=== PATIENT | male | born 1985 | race Caucasian/White ===

== ENCOUNTER 2021-03-23 20:14 | Observation (INO) ==
[2021-03-23] MEDS ORDERED: IOPAMIDOL 100 ML BOTTLE IV ONE (20:15)
[2021-03-23] MEDS ORDERED: ONDANSETRON 4 MG/2 ML VIAL IV ONE (20:19)
[2021-03-23] MEDS ORDERED: 0.9 % SODIUM CHLORIDE 1,000 ML IV ONE (20:19)
[2021-03-23] MEDS ORDERED: fentaNYL 100 MCG/2 ML VIAL IV ONE (20:19)
--- NOTE | 2021-03-23 20:38 | Emergency Department Note ---
Abdominal Pain HPI General Chief Complaint: Abdominal Pain Stated Complaint: abd pain Time Seen by Provider: 03/23/21 20:19 Source: patient Mode of arrival: ambulatory Limitations: no limitations History of Present Illness HPI Narrative: Narrative: 35-year-old male presents to the emergency department for right lower quadrant abdominal pain. Says it started to go down into his scrotum. He says started around 130 and is continued to get worse. He has some nausea but no vomiting says it is now about 8 out of 10 sharp stabbing pain worse with any movement. Is never had any abdominal surgeries. No change in bowel movements. No pain with urination. Denying any other symptoms otherwise. Related Data Home Medications Medication Instructions Recorded Confirmed No Known Home Meds 09/08/20 09/08/20 Allergies Allergy/AdvReac Type Severity Reaction Status Date / Time No Known Drug Allergies Allergy Verified 03/23/21 20:15 Review of Systems ROS ROS Narrative: Narrative: All systems ED: reviewed and negative except as stated. COUNTS INCLUDE 234 BEDS AT THE [facility] Narrative Patient History Narrative: Narrative: Medical/Surgical/Family History All Active Problems (Updated 03/23/21 @ 21:20 by Ramu Roque DO) Acute appendicitis (Acute) Cough (Acute) Social History Smoking Status: Former smoker Exam Narrative Narrative: Narrative: Vital signs noted General: Awake. Alert. No distress. Skin: Warm. Dry. No rash. HEENT: NCAT. PERRL. EOMI. No conjunctivitis. No nystagmus. No pharyngitis. Membranes moist. Neck: No PTP. Good ROM. No meningeal signs. No stridor. No thyromegaly. No JVD. Cardiovascular: RRR. No murmur. No rubs. No gallops. Respiratory: No respiratory distress. Breath sounds equal. Lungs clear. Gastrointestinal: Abdomen soft. Tenderness while palpating the right lower quadrant. Negative CVA tenderness. Positive Rovsing sign as well as McBurney's point. Negative Berger sign. No distention. Normal bowel sounds. No palpable organomegaly or masses. Back: No deformity. No CVAT. Musculoskeletal: No tenderness. No swelling. No erythema. No edema. Good peripheral pulses x 4 Lymphatic: No palpable adenopathy. Neurological: No focal neurological deficits observed. General Limitations: no limitations Course Vital Signs Vital signs: Vital Signs Temperature 99.2 F H 03/23/21 20:16 Pulse Rate 78 03/23/21 20:16 Respiratory Rate 18 03/23/21 20:16 Blood Pressure 136/76 03/23/21 20:16 Pulse Oximetry (%) 98 03/23/21 20:16 Temperature 99.2 F H 03/23/21 20:16 Pulse Rate 84 03/23/21 21:06 Respiratory Rate 18 03/23/21 20:16 Blood Pressure 145/74 03/23/21 21:06 Pulse Oximetry (%) 100 03/23/21 21:06 MDM MDM Narrative Medical decision making narrative: Narrative: Patient does have right lower quadrant pain on exam. Most likely this is appendicitis possible kidney stone will get CT for verification. We will get basic labs. Patient will receive fentanyl for pain control Zofran for nausea and IV fluids for rehydration. Patient is okay with this plan. Disposition will be pending results. She is better after the medication. Patient does have acute appendicitis no perforation no abscess. Does have a white count of 15. We will go ahead and admit the patient to Dr. Walden the surgeon who I did speak with and will plan for surgery tomorrow. Patient is admitted in stable condition. We will start Zosyn in the emergency department and continued on the floor. Lab Data Result diagrams: 03/23/21 20:25 03/23/21 20:25 Labs: Lab Results 03/23/21 Range/Units 20:25 WBC 15.4 H (4.5-11.0) K/mcL RBC 4.97 (4.50-5.90) M/mcL Hgb 15.1 (13.5-16.5) g/dL Hct 42.4 (41.0-55.0) % MCV 85.3 (80.0-100.0) fL MCH 30.4 (26.0-34.0) pg MCHC 35.6 (31.0-36.0) g/dL RDW 11.9 (11.5-14.5) % Plt Count 270 (140-440) K/mcL MPV 10.1 (7.4-10.4) fL Neut % (Auto) 84.4 H (38.0-78.0) % Lymph % (Auto) 8.0 L (15.0-49.0) % [place] % (Auto) 7.3 (1.0-12.0) % Eos % (Auto) 0.1 (0.0-7.0) % Baso % (Auto) 0.2 (0.0-2.0) % Lymph # (Auto) 1.23 L (1.50-4.80) K/mcL [place] # (Auto) 1.13 H (0.10-0.90) K/mcL Eos # (Auto) 0.02 (0.00-0.70) K/mcL Baso # (Auto) 0.03 (0.00-0.20) K/mcL Absolute Neutrophils 12.98 H (1.80-8.00) K/mcL Discharge Plan Patient/Caregiver Discharge Instructions Pt seen by FEED INSPECTION SUPERVISOR/PA only: No Clinical Impression: Acute appendicitis Activity: increase activity as tolerated Patient Disposition: Xfer As Outpt/Obs ([facility]) Condition: Good Follow up with: No,PCP [Primary Care Provider] - Prescriptions: No Action No Known Home Meds RF: 0
[2021-03-23 21:12] LABS: Basophils # (Auto) 0.03 K/mcL (0.00-0.20); Basophils % (Auto) 0.2 % (0.0-2.0); Eosinophils # (Auto) 0.02 K/mcL (0.00-0.70); Eosinophils % (Auto) 0.1 % (0.0-7.0); Hematocrit 42.4 % (41.0-55.0); Hemoglobin 15.1 g/dL (13.5-16.5); Lymphocytes # (Auto) 1.23 K/mcL (1.50-4.80); Mean Cell Volume 85.3 fL (80.0-100.0); Mean Corpuscular HGB Conc 35.6 g/dL (31.0-36.0); Mean Platelet Volume 10.1 fL (7.4-10.4); Monocytes # (Auto) 1.13 K/mcL (0.10-0.90); Monocytes % (Auto) 7.3 % (1.0-12.0); Neutrophils % (Auto) 84.4 % (38.0-78.0); Platelet Count 270 K/mcL (140-440); RBC 4.97 M/mcL (4.50-5.90); Red Cell Distribution Width 11.9 % (11.5-14.5); WBC 15.4 K/mcL (4.5-11.0)
[2021-03-23 21:20] LABS: Appearance,Urine CLEAR (Clear); Bilirubin,Urine Negative (Negative); Color,Urine YELLOW; Culture Indicated,Urine No; Glucose,Urine (UA) Negative (Negative); Ketones,Urine 20 mg/dL (Negative); Leukocyte Esterase,Urine Negative /ug (Negative); Nitrate,Urine Negative (Negative); Protein,Urine Negative (Negative); Specific Gravity,Urine 1.024 (1.000-1.035); Urine Blood Negative (Negative)
[2021-03-23] MEDS ORDERED: NALOXONE HCL 0.4 MG/ML VIAL IV PRN (21:20)
[2021-03-23] MEDS ORDERED: morphine 4 MG/ML VIAL IV PRN (21:20)
[2021-03-23] MEDS ORDERED: PIPERACILLIN SODIUM/TAZOBACTAM 3.375 GM in DEXTROSE 5% IN WATER 50 ML IV ONE (21:20)
[2021-03-23] MEDS ORDERED: ACETAMINOPHEN 325 MG TABLET PO PRN (21:20)
[2021-03-23] MEDS ORDERED: IBUPROFEN 600 MG TABLET PO PRN (21:20)
[2021-03-23] MEDS ORDERED: ONDANSETRON 4 MG/2 ML VIAL IV PRN (21:20)
[2021-03-23 21:36] LABS: ALT/SGPT 20 U/L (<40); AST/SGOT 23 U/L (<40); Albumin 4.6 gm/dL (3.2-5.2); Albumin/Globulin Ratio 1.6 (1.0-2.3); Alkaline Phosphatase 88 U/L (39-117); Bilirubin,Total 0.5 mg/dL (0.1-1.0); Blood Urea Nitrogen 14 mg/dL (6-20); Calcium 9.5 mg/dL (8.6-10.4); Carbon Dioxide 24 mmol/L (22-30); Chloride 100 mmol/L (96-108); Globulin 2.8 gm/dL (2.2-3.7); Glomerular Filtration Rate 96; Glucose 96 mg/dL (70-105)
[2021-03-23] MEDS: 0.9 % SODIUM CHLORIDE 1,000 ML IV SCH (22:01)
[2021-03-23] MEDS: PIPERACILLIN SODIUM/TAZOBACTAM 3.375 GM in DEXTROSE 5% IN WATER 50 ML IV SCH (22:02)
[2021-03-23] MEDS: 0.9 % SODIUM CHLORIDE 10 ML SYRINGE IV SCH (22:02)
[2021-03-23] MEDS ORDERED: HYDROmorphone 0.5 MG/0.5 ML SYRINGE IV PRN (22:31)
[2021-03-23 22:41] LABS: INR 1.1 (0.9-1.1); Prothrombin Time 14.3 sec (11.9-14.5)
--- NOTE | 2021-03-24 02:26 | Cat Scan Report ---
CLINICAL INFORMATION: Right lower quadrant pain COMPARISON: None. TECHNIQUE: Following enteric contrast, 80 cc of Isovue-370 were injected intravenously, and 60 seconds later, 0.625 mm helical slices were obtained from the mid heart through the subtrochanteric regions. Following reconstruction, 2.5 mm sagittal, coronal and axial reformatted images were processed and reviewed at bone, lung and soft tissue windows. Five minutes later, 0.625 mm helical slices were obtained from the mid heart through the kidneys and viewed at soft tissue windows.The exam was performed using radiation dose optimization techniques including, but not limited to, automated exposure control, adjustment of the mA and/or kV according to patient size and use of iterative reconstruction technique. FINDINGS: Lung bases are clear. No effusion. Visualized heart is normal. Abdominal images show the gallbladder and bile ducts, liver, right kidney, both adrenal glands, spleen, pancreas and aorta, including aortic branches to be normal in size configuration and attenuation without focal lesion. 5 mm simple cyst seen inferior pole the left kidney. No significant left renal abnormality. There is no free air, free fluid or adenopathy Pelvic images show prostate and seminal vesicles are normal. Mild diffuse urinary bladder wall thickening likely artifact related to underdistention. An infiltrative process, such as cystitis, is not excluded The appendix, located in the inferior pericecal region, is mildly dilated-9 mm there is mild wall thickening and inflammation in the periappendiceal fat compatible with simple appendicitis. The stomach, small and large bowel are grossly normal. Bone windows show no osseous abnormality IMPRESSION: 1. Simple appendicitis. Appendix is located in inferior pericecal region. 2. Mild diffuse wall thickening the urinary bladder is likely artifact related underdistention. Please correlate with UA to ensure the absence of cystitis. Interpreted and Authenticated by: Luis Alberto Manzanares 03/24/21
[2021-03-24] MEDS: 0.9 % SODIUM CHLORIDE 10 ML SYRINGE IV SCH ×5 (05:15→21:30)
[2021-03-24 06:42] LABS: Basophils # (Auto) 0.01 K/mcL (0.00-0.20); Basophils % (Auto) 0.1 % (0.0-2.0); Eosinophils # (Auto) 0.01 K/mcL (0.00-0.70); Eosinophils % (Auto) 0.1 % (0.0-7.0); Hematocrit 36.9 % (41.0-55.0); Hemoglobin 12.8 g/dL (13.5-16.5); Lymphocytes % (Auto) 12.8 % (15.0-49.0); Mean Cell Volume 87.9 fL (80.0-100.0); Mean Corpuscular HGB Conc 34.7 g/dL (31.0-36.0); Mean Platelet Volume 10.2 fL (7.4-10.4); Monocytes # (Auto) 0.93 K/mcL (0.10-0.90); Monocytes % (Auto) 8.5 % (1.0-12.0); Neutrophils % (Auto) 78.5 % (38.0-78.0); Platelet Count 192 K/mcL (140-440); Red Cell Distribution Width 12.1 % (11.5-14.5); WBC 10.9 K/mcL (4.5-11.0)
[2021-03-24] MEDS: PIPERACILLIN SODIUM/TAZOBACTAM 3.375 GM in DEXTROSE 5% IN WATER 50 ML IV SCH ×3 (07:00→17:12)
[2021-03-24 07:05] LABS: ALT/SGPT 16 U/L (<40); AST/SGOT 14 U/L (<40); Albumin 3.6 gm/dL (3.2-5.2); Albumin/Globulin Ratio 1.6 (1.0-2.3); Alkaline Phosphatase 70 U/L (39-117); Bilirubin,Direct 0.2 mg/dL (<0.3); Bilirubin,Total 0.9 mg/dL (0.1-1.0); Blood Urea Nitrogen 13 mg/dL (6-20); Calcium 8.4 mg/dL (8.6-10.4); Carbon Dioxide 27 mmol/L (22-30); Chloride 102 mmol/L (96-108); Globulin 2.3 gm/dL (2.2-3.7); Glomerular Filtration Rate 109; Glucose 346 mg/dL (70-105); Lactate Dehydrogenase 145 U/L (135-225); Triglycerides 42 mg/dL (<150); Uric Acid 3.7 mg/dL (2.5-8.0)
[2021-03-24] MEDS: 0.9 % SODIUM CHLORIDE 1,000 ML IV SCH ×3 (07:28→16:54)
[2021-03-24] MEDS: INSULIN LISPRO 1 UNIT/0.01 ML UNIT SQ SCH ×4 (07:59→20:38)
[2021-03-24] MEDS: DOCUSATE SODIUM 100 MG CAPSULE PO SCH ×2 (08:03→20:39)
[2021-03-24] MEDS ORDERED: HEPARIN 5,000 UNIT/ML VIAL SQ SCH (09:00)
--- NOTE | 2021-03-24 10:34 | General Surg History&Physical ---
HPI History of Present Illness Patient information: Note initiated : 03/24/21 at 10:18 am Service Date, if different from initiated Date: [] Patient: Ced Coppola a 35 y/o M admitted on 03/23/21 for abd pain. Chief Complaint: [] Chief complaint: Right lower quadrant pain History of present illness: Mr. Coppola is a 35 year old M admitted with acute appendicitis. The patient had onset of mid abdominal diffuse pain about 1330 y esterday. The pain spread to his right lower quadrant and into his right groin. This was followed by nausea with vomiting. He had increased pain and was seen in the emergency room where it was noted that he had tenderness in his right lower quadrant. CT of the abdomen confirms a dilated appendix of 11 mm with swelling on the wall and an appendicolith. He is admitted and will have appendectomy today. Constitutional Constitutional: Absent chills, lethargy and malaise EENT Eyes: Present as per HPI Ears: Present as per HPI Nose, mouth and throat: Present as per HPI Cardiovascular Cardiovascular: Absent chest pain, chest pain with activity and irregular heart rhythm Respiratory Respiratory: Absent cough and dyspnea Gastrointestinal Gastrointestinal: Present abdominal pain, cramping, nausea and vomiting Genitourinary Genitourinary: as per HPI Musculoskeletal Musculoskeletal: Absent abnormal gait, myalgias and numbness Integumentary Integumentary: Absent changing lesions and pruritus Neurological Neurological: Absent convulsions, focal weakness, numbness, paresthesias and sensory deficit Psychiatric Psychiatric: Absent memory loss Endocrine Endocrine: Absent fatigue, polydipsia, polyphagia and polyuria Hematologic/Lymphatic Hematologic/Lymphatic: Absent easy bleeding, easy bruising and lymphadenopathy Allergic/Immunologic Allergic/Immunologic: Absent tongue swelling and throat swelling PFSH PFSH All Active Problems (Updated 03/24/21 @ 10:27 by Daxa Walden MD) Type 1 diabetes mellitus not at goal (Acute) Acute appendicitis (Acute) Cough (Acute) Family History (Updated 03/24/21 @ 10:29 by Daxa Walden MD) Mother Chronic iron deficiency anemia Father Gastrointestinal malignancy Hypertension Social History (Updated 03/24/21 @ 10:31 by Daxa Walden MD) household members: spouse marital status: sexually active: Yes well-balanced diet: about half the time smoking status: Never smoker alcohol intake frequency: a few times a week counseling given: Yes substance use type: does not use MEDS/ALLERGIES Home Medications and Allergies Home Medications Medication Instructions Recorded Confirmed Type insulin NPH isoph U-100 human 20 unit SUBCUT QPM 03/23/21 03/23/21 History insulin NPH isoph U-100 human 35 unit SUBCUT QAM 03/23/21 03/23/21 History insulin regular human 10 unit SUBCUT BID 03/23/21 03/23/21 History Allergies Allergy/AdvReac Type Severity Reaction Status Date / Time No Known Drug Allergies Allergy Verified 03/23/21 20:15 Physical Examination Vital Signs Vital signs: Temp Pulse Resp BP Pulse Ox 97.9 F 73 14 111/55 97 03/24/21 08:00 03/24/21 08:00 03/24/21 08:00 03/24/21 08:00 03/24/21 08:00 General physical appearance General physical exam: well developed, well nourished, no distress and moderate pain Eyes Eye exam: PERRL and normal ocular movement ENT ENT exam: normal pinna, normal nares, normal mucosa, no hearing loss and no congestion Head Head exam IM: Present atraumatic, normal inspection and normocephalic Neck Neck exam: no masses, no bruits, trachea midline and no lymphadenopathy Cardiovascular Cardiovascular exam IM: Present normal rate and rhythm, RRR, +S1 and +S2; Absent gallop and JVD Respiratory Respiratory exam: normal expansion, normal respiratory effort and clear to auscultation Abdomen Abdomen: Present tender (Right lower quadrant tenderness with guarding) Integumentary Integumentary: Present no rash, no growths and no abnormal pigmentation Neurologic Neurologic: Present normal coordination and normal sensation Musculoskeletal Musculoskeletal: Present normal gait and normal posture Psychiatric Psychiatric: Present oriented to time, oriented to person, oriented to place, speech is normal and memory intact Results Labs Result diagrams: 03/24/21 05:31 03/24/21 05:31 Labs: Abnormal lab results 03/23/21 03/23/21 03/24/21 Range/Units 20:23 20:25 05:31 WBC 15.4 H (4.5-11.0) K/mcL RBC (4.50-5.90) M/mcL Hgb (13.5-16.5) g/dL Hct (41.0-55.0) % Neut % (Auto) 84.4 H (38.0-78.0) % Lymph % (Auto) 8.0 L (15.0-49.0) % Lymph # (Auto) 1.23 L (1.50-4.80) K/mcL [place] # (Auto) 1.13 H (0.10-0.90) K/mcL Absolute Neutrophils 12.98 H (1.80-8.00) K/mcL Anion Gap 7.0 L (8.0-16.0) Glucose 346 H (70-105) mg/dL Calcium 8.4 L (8.6-10.4) mg/dL Urine Ketones 20 A (Negative) mg/dL Urine Urobilinogen 2.0 A mg/dL 03/24/21 Range/Units 05:31 WBC (4.5-11.0) K/mcL RBC 4.20 L (4.50-5.90) M/mcL Hgb 12.8 L (13.5-16.5) g/dL Hct 36.9 L (41.0-55.0) % Neut % (Auto) 78.5 H (38.0-78.0) % Lymph % (Auto) 12.8 L (15.0-49.0) % Lymph # (Auto) 1.40 L (1.50-4.80) K/mcL [place] # (Auto) 0.93 H (0.10-0.90) K/mcL Absolute Neutrophils 8.59 H (1.80-8.00) K/mcL Anion Gap (8.0-16.0) Glucose (70-105) mg/dL Calcium (8.6-10.4) mg/dL Urine Ketones (Negative) mg/dL Urine Urobilinogen mg/dL Diabetes panel 03/23/21 03/24/21 Range/Units 20:25 05:31 Sodium 135 136 (133-145) mmol/L Potassium 3.5 4.4 (3.3-5.1) mmol/L Chloride 100 102 (96-108) mmol/L Carbon Dioxide 24 27 (22-30) mmol/L BUN 14 13 (6-20) mg/dL Creatinine 1.0 0.9 (0.7-1.2) mg/dL Glucose 96 346 H (70-105) mg/dL Calcium 9.5 8.4 L (8.6-10.4) mg/dL AST 23 14 (<40) U/L ALT 20 16 (<40) U/L Alkaline Phosphatase 88 70 (39-117) U/L Total Protein 7.4 5.9 (5.9-8.4) gm/dL Albumin 4.6 3.6 (3.2-5.2) gm/dL Triglycerides 42 (<150) mg/dL Calcium panel 03/23/21 03/24/21 Range/Units 20:25 05:31 Calcium 9.5 8.4 L (8.6-10.4) mg/dL Phosphorus 4.0 (2.5-4.5) mg/dL Albumin 4.6 3.6 (3.2-5.2) gm/dL Pituitary panel 03/23/21 03/24/21 Range/Units 20:25 05:31 Sodium 135 136 (133-145) mmol/L Potassium 3.5 4.4 (3.3-5.1) mmol/L Chloride 100 102 (96-108) mmol/L Carbon Dioxide 24 27 (22-30) mmol/L BUN 14 13 (6-20) mg/dL Creatinine 1.0 0.9 (0.7-1.2) mg/dL Glucose 96 346 H (70-105) mg/dL Calcium 9.5 8.4 L (8.6-10.4) mg/dL Adrenal panel 03/23/21 03/24/21 Range/Units 20:25 05:31 Sodium 135 136 (133-145) mmol/L Potassium 3.5 4.4 (3.3-5.1) mmol/L Chloride 100 102 (96-108) mmol/L Carbon Dioxide 24 27 (22-30) mmol/L BUN 14 13 (6-20) mg/dL Creatinine 1.0 0.9 (0.7-1.2) mg/dL Glucose 96 346 H (70-105) mg/dL Calcium 9.5 8.4 L (8.6-10.4) mg/dL Total Bilirubin 0.5 0.9 (0.1-1.0) mg/dL AST 23 14 (<40) U/L ALT 20 16 (<40) U/L Alkaline Phosphatase 88 70 (39-117) U/L Total Protein 7.4 5.9 (5.9-8.4) gm/dL Albumin 4.6 3.6 (3.2-5.2) gm/dL All other labs normal. A/P Assessment and plan (1) Acute appendicitis: Status: Acute Qualifiers: Acute appendicitis type: with localized peritonitis Appendicitis abscess presence: without abscess Appendicitis gangrene presence: without gangrene Appendicitis perforation presence: without perforation Qualified Code(s): K35.30 - Acute appendicitis with localized peritonitis, without perforation or gangrene (2) Type 1 diabetes mellitus not at goal: Status: Acute Narrative A/P Narrative: Patient is counseled for laparoscopic appendectomy He will be performed later today He is given counseling concerning control of his diabetes Time Spent With Patient Time: Total time spent is greater than 50% in coordination of care (as documented) at patient's floor/unit and/or counseling patient:
[2021-03-24] MEDS ORDERED: ROCURONIUM 10 MG/ML ML IV ONE (11:34)
[2021-03-24] MEDS ORDERED: KETAMINE 50 MG/ML ML ONE (11:34)
[2021-03-24] MEDS ORDERED: MIDAZOLAM 2 MG/2 ML VIAL ONE (11:34)
[2021-03-24] MEDS ORDERED: LIDOCAINE HCL/PF 100 MG/5 ML SYRINGE IV ONE (11:34)
[2021-03-24] MEDS ORDERED: ONDANSETRON 4 MG/2 ML VIAL ONE (11:34)
[2021-03-24] MEDS ORDERED: fentaNYL 100 MCG/2 ML VIAL IV ONE (11:34)
[2021-03-24] MEDS ORDERED: DEXAMETHASONE 10 MG/ML VIAL ONE (11:34)
[2021-03-24] MEDS ORDERED: PROPOFOL 200 MG/20 ML VIAL IV ONE (11:34)
[2021-03-24] MEDS ORDERED: GLYCOPYRROLATE 0.2 MG/ML VIAL IV ONE (11:34)
[2021-03-24] MEDS ORDERED: ONDANSETRON 4 MG/2 ML VIAL IV PRN (12:17)
[2021-03-24] MEDS ORDERED: PROMETHAZINE 25 MG/ML VIAL IM PRN (12:17)
[2021-03-24] MEDS ORDERED: fentaNYL 100 MCG/2 ML VIAL IV PRN (12:17)
[2021-03-24] MEDS ORDERED: BENZOCAINE/MENTHOL 1 LOZENGE PO PRN (12:17)
[2021-03-24] MEDS ORDERED: IPRATROPIUM/ALBUTEROL 3 ML AMPUL.NEB NEB PRN (12:17)
[2021-03-24] MEDS ORDERED: KETOROLAC 30 MG/ML VIAL IV PRN (12:17)
[2021-03-24] MEDS ORDERED: PROMETHAZINE 25 MG/ML VIAL IV PRN (12:17)
[2021-03-24] MEDS ORDERED: MEPERIDINE 50 MG/ML VIAL IM PRN (12:17)
[2021-03-24] MEDS ORDERED: ACETAMINOPHEN 1,000 MG/100 ML BAG IV ONE (12:17)
--- NOTE | 2021-03-24 12:30 | Brief Operative Note ---
Brief Operative Note Date of procedure: 03/24/21 Pre-op diagnosis: acute appendicitis Post-op diagnosis: other (acute appendicitis) Procedure: laparoscopic appendectomy Grafts/Implants: No Anesthesia: GETA Findings: acute suppurative appendicitis Complications: none Surgeon: Daxa Walden Estimated blood loss (cc): 5 Specimens Removed/Pathology: other (appendix) Condition: stable Disposition: PACU
[2021-03-24] MEDS: LACTATED RINGERS 1,000 ML IV SCH ×2 (12:38→13:45)
[2021-03-24] MEDS ORDERED: MEPERIDINE 25 MG/ML VIAL IV ONE (13:00)
[2021-03-24] MEDS ORDERED: LACTATED RINGERS 1,000 ML IV SCH (13:42)
[2021-03-24] MEDS ORDERED: SENNOSIDES 1 TABLET PO SCH (21:00)
[2021-03-25] MEDS: PIPERACILLIN SODIUM/TAZOBACTAM 3.375 GM in DEXTROSE 5% IN WATER 50 ML IV SCH ×3 (00:20→11:54)
[2021-03-25] MEDS: 0.9 % SODIUM CHLORIDE 1,000 ML IV SCH ×3 (01:45→13:17)
[2021-03-25] MEDS: 0.9 % SODIUM CHLORIDE 10 ML SYRINGE IV SCH ×2 (05:21→05:22)
[2021-03-25] MEDS: INSULIN LISPRO 1 UNIT/0.01 ML UNIT SQ SCH ×2 (07:07→11:54)
[2021-03-25] MEDS: DOCUSATE SODIUM 100 MG CAPSULE PO SCH (08:59)
[2021-03-25 09:14] LABS: Basophils # (Auto) 0.01 K/mcL (0.00-0.20); Basophils % (Auto) 0.1 % (0.0-2.0); Eosinophils # (Auto) 0 K/mcL (0.00-0.70); Eosinophils % (Auto) 0 % (0.0-7.0); Hematocrit 36.2 % (41.0-55.0); Hemoglobin 12.3 g/dL (13.5-16.5); Lymphocytes # (Auto) 0.93 K/mcL (1.50-4.80); Lymphocytes % (Auto) 7.7 % (15.0-49.0); Mean Cell Volume 90.7 fL (80.0-100.0); Mean Platelet Volume 10.9 fL (7.4-10.4); Monocytes # (Auto) 0.59 K/mcL (0.10-0.90); Monocytes % (Auto) 4.9 % (1.0-12.0); Neutrophils % (Auto) 87.3 % (38.0-78.0); Platelet Count 201 K/mcL (140-440); RBC 3.99 M/mcL (4.50-5.90); Red Cell Distribution Width 12.1 % (11.5-14.5)
--- NOTE | 2021-03-25 12:51 | Discharge Summary ---
Discharge Provider Provider Patient information: Note initiated : 03/25/21 at 12:43 pm Service Date, if different from initiated Date: [] Patient: Ced Coppola 35 y/o M admitted on 03/23/21 for abd pain. Chief Complaint: [] Date of admission: 03/23/21 21:50 Discharge date: 03/25/21 Primary care physician: PCP No Admitting clinician: Daxa Walden Attending physician on admission: Daxa Walden Consults: 03/23/21 Consult to Physician [CONS] Stat Comment: Consulting Provider: Daxa Walden Reason For Exam: Physician to Consult Attending physician on discharge: Daxa Walden Discharging clinician: Daxa Walden COURSE Hospital Course Hospital course: 35-year-old male who presented with a 12-hour history of right lower quadrant pain with nausea and vomiting. Evaluation revealed acute appendicitis. He had laparoscopic appendectomy on yesterday and has done well with regard to his appendicitis. The patient also has type 1 diabetes and has not had any follow-up for his diabetes in over a year. He rarely checks his blood glucose level by Accu-Cheks. He states that he follows his diabetes based on his feeling and he takes extra insulin when he feels bad. His admitting blood sugars were in the 360 range. Patient is strongly advised to follow-up with his primary care provider for better diabetes control. An A1c is ordered and will be sent to Reagan Gaona his primary care provider. Discharge diagnosis: Acute appendicitis Secondary discharge diagnosis: Type 1 diabetes mellitus Reason for admission: Acute appendicitis Procedures: Laparoscopic appendectomy Complications: None Time Spent with Patient Time attestation: Total time spent providing and/or coordinating discharge services: Physical Examination Vital Signs Vital signs: Temp Pulse Resp BP Pulse Ox 98.9 F 88 16 115/68 98 03/25/21 12:00 03/25/21 12:00 03/25/21 12:00 03/25/21 12:00 03/25/21 12:01 General physical appearance General physical exam: well developed, well nourished, no distress and no pain Eyes Eye exam: PERRL and normal ocular movement ENT ENT exam: normal mucosa and no congestion Head Head exam IM: Present atraumatic, normal inspection and normocephalic Neck Neck exam: no masses, no bruits, trachea midline, no lymphadenopathy and no venous distension Cardiovascular Cardiovascular exam IM: Present normal rate and rhythm, RRR, +S1 and +S2; Absent JVD and tachycardia Respiratory Respiratory exam: normal expansion, normal respiratory effort and clear to auscultation Abdomen Abdomen: Present soft, tender (Mild tenderness around port sites) and bowel sounds (Normal bowel sounds) Integumentary Integumentary: Present no rash, no growths and no abnormal pigmentation Neurologic Neurologic: Present normal coordination and normal sensation Musculoskeletal Musculoskeletal: Present normal gait and normal posture Psychiatric Psychiatric: Present oriented to time, oriented to person, oriented to place, speech is normal and memory intact Discharge Plan Patient/Caregiver Discharge Instructions Activity: increase activity as tolerated Diet: Consistent Carbohydrate Prescriptions: No Action insulin regular human 100 unit/mL Solution 10 unit SUBCUT BID RF: 0 insulin NPH isoph U-100 human 100 unit/mL Suspension 35 unit SUBCUT QAM RF: 0 insulin NPH isoph U-100 human 100 unit/mL Suspension 20 unit SUBCUT QPM RF: 0 Follow Up Plan Follow up with: Daxa Walden MD [Physician] - 04/07/21 2:30 pm No,PCP [Primary Care Provider] - (35-year-old with type 1 diabetes with no medical follow-up) Patient Disposition: Home, Self-Care Hospital Course: Patient had an uneventful postoperative course. He was given very leonardo, point ed instructions about the need for better follow-up of his diabetes. He is advised to follow-up with his primary care provider Prognosis: Good Rehab Potential: Good I certify that the patient requires SNF services: Yes Overall status at discharge: patient is progressing back to baseline Discharge Orders: Discharge Order (Routine); Ordered 03/25/21 Ordered By: Daxa Walden Pending Pending Pending: Resuscitation Status Full Code Diet Regular Diet Start SunMar 25 0800 Diagnostic Test (Pha) (Accu-Chek 1 Each Strip) 1 each FS ACHS [facility] Last Admin: 03/25/21 11:54 Dose: 1 each Documented by: Cosigned by: FLIP Admin: 03/25/21 07:07 Dose: 1 each Documented by: Admin: 03/24/21 20:43 Dose: 1 each Documented by: Admin: 03/24/21 16:52 Dose: 1 each Documented by: FLIP Docusate Sodium (Docusate Sodium 100 Mg Capsule) 100 mg PO BID [facility] Last Admin: 03/25/21 08:59 Dose: 100 mg Documented by: Cosigned by: [facility] Admin: 03/24/21 20:39 Dose: 100 mg Documented by: Admin: 03/24/21 08:03 Dose: Not Given Documented by: FLIP Sodium Chloride (Sodium Chloride 0.9%) 1,000 mls @ 100 mls/hr IV .Q10H [facility] Last Admin: 03/25/21 10:13 Dose: 100 mls/hr Documented by: Cosigned by: SHAUNA Infusion: 03/25/21 10:13 Dose: 100 mls/hr Documented by: Cosigned by: SHAUNA Admin: 03/25/21 01:45 Dose: 100 mls/hr Documented by: Infusion: 03/24/21 22:28 Dose: 100 mls/hr Documented by: Admin: 03/24/21 16:54 Dose: Not Given Documented by: Admin: 03/24/21 09:52 Dose: 100 mls/hr Documented by: Infusion: 03/24/21 08:01 Dose: 100 mls/hr Documented by: Admin: 03/24/21 07:28 Dose: Not Given Documented by: Admin: 03/23/21 22:01 Dose: 100 mls/hr Documented by: CHRISTOPHER Piperacillin Sod/Tazobactam (Sod 3.375 gm/ Dextrose) 50 mls @ 100 mls/hr IV Q6H [facility]; Protocol Last Admin: 03/25/21 11:54 Dose: 100 mls/hr Documented by: Cosigned by: FLIP Infusion: 03/25/21 06:03 Dose: 0 mls/hr Documented by: Admin: 03/25/21 05:20 Dose: 100 mls/hr Documented by: Infusion: 03/25/21 00:55 Dose: 0 mls/hr Documented by: Admin: 03/25/21 00:20 Dose: 100 mls/hr Documented by: Infusion: 03/24/21 17:48 Dose: 100 mls/hr Documented by: Admin: 03/24/21 17:12 Dose: 100 mls/hr Documented by: Infusion: 03/24/21 11:45 Dose: 0 mls/hr Documented by: Admin: 03/24/21 11:07 Dose: 100 mls/hr Documented by: Infusion: 03/24/21 08:02 Dose: 100 mls/hr Documented by: Admin: 03/24/21 07:00 Dose: 100 mls/hr Documented by: Infusion: 03/23/21 22:32 Dose: 100 mls/hr Documented by: Admin: 03/23/21 22:02 Dose: 100 mls/hr Documented by: CHRISTOPHER Insulin Human Lispro (Insulin Lispro 1 Unit/0.01 Ml Unit) 0 unit SQ [facility]; Protocol Last Admin: 03/25/21 11:54 Dose: 8 units Documented by: Cosigned by: FLIP Admin: 03/25/21 07:07 Dose: 10 units Documented by: Admin: 03/24/21 20:38 Dose: 8 units Documented by: Admin: 03/24/21 16:51 Dose: 10 units Documented by: FLIP Morphine Sulfate (Morphine 4 Mg/Ml Vial) 4 mg IV Q4HP PRN; Protocol PRN Reason: Per Pain Protocol Last Admin: 03/23/21 22:11 Dose: 4 mg Documented by: CHRISTOPHER Senna (Sennosides 1 Tablet) 2 tab PO HS [facility] Last Admin: 03/24/21 20:39 Dose: 2 tab Documented by: NI Sodium Chloride (0.9 % Sodium Chloride 10 Ml Syringe) 10 ml IV Q8 [facility] Last Admin: 03/25/21 05:21 Dose: 10 ml Documented by: Admin: 03/24/21 20:41 Dose: Not Given Documented by: Admin: 03/24/21 13:58 Dose: Not Given Documented by: Admin: 03/24/21 05:15 Dose: Not Given Documented by: Admin: 03/23/21 22:02 Dose: 10 ml Documented by: CHRISTOPHER Sodium Chloride (0.9 % Sodium Chloride 10 Ml Syringe) 10 ml IV Q8 [facility] Last Admin: 03/25/21 05:22 Dose: Not Given Documented by: Admin: 03/24/21 21:30 Dose: Not Given Documented by: Admin: 03/24/21 13:40 Dose: Not Given Documented by: FLIP Shift Summary 03/25/21 03:50 Shift Summary by Stella Etienne Pt is here with an acute appendicitis with localized peritonitis without perforation or gangrene also is a type 1 IDDM without complications. Evening blood sugar 281 covered with 8u per sliding scale. He has 3 small incision form surgery to his abdomen meseret are intact and Tegaderm intact. Pt is A & O x4 independent with ambulation. VSS. Tolerating full liquid diet well. NS running in the left forearm at 100cc/hr via pump. Voiding clear yellow urine without difficulty. Using IS well. No c/o pain through out this shift. Initialized on 03/25/21 03:50 - END OF NOTE
[2021-03-25 13:25] LABS: Hemoglobin A1C 8.1 % Hgb (4.0-6.0)
--- NOTE | 2021-03-25 15:53 | Surgical Pathology Report ---
Histology Microscopic Diagnosis Specimen A- APPENDIX, APPENDECTOMY: --- ACUTE APPENDICITIS. (RLF) Procedural Impression Acute appendicitis. Gross Description Received in formalin designated as appendix, is a robles appendix that is 9 cm in length by 0.9 cm in diameter. The margin is stapled; this is inked black. Sectioning reveals luminal red clot-like tissue. Grossly there are no areas of perforation identified. Baked And Graphite Inspector sections submitted in one cassette. (SCB:sln) Electronically Signed Gabby Phipps MD, FCAP Electronically Signed 03/25/2021 15:52
--- NOTE | 2021-03-30 14:58 | Operative Note ---
DATE OF OPERATION: 03/24/2021 PREOPERATIVE DIAGNOSIS: Acute appendicitis. POSTOPERATIVE DIAGNOSIS: Acute appendicitis. PROCEDURE: Laparoscopic appendectomy. SURGEON: Daxa Walden M.D. FINDINGS: Acute suppurative appendicitis. DESCRIPTION OF PROCEDURE: Under general anesthesia, the patient's abdomen was prepped and draped in a sterile field. Supraumbilical incision was made. Veress needle was inserted uneventfully. Abdomen was insufflated with 3 liters of CO2. A 12 mm port was placed. Laparoscope was placed. Under videoscopic guidance, a 12 mm port was placed in the left lower quadrant and a 5 mm port in the suprapubic midline. The appendix was noted lateral to the cecum. It was dissected away from the peritoneal reflection and the base was identified. A window was made in the mesoappendix at the base. The appendix was transected using the Endo JALIL stapler. The mesoappendix was transected using the Endo JALIL stapler. The appendix was placed in an Endopouch and retrieved. Irrigation was carried out. There was no bleeding. There was no gross purulence. The fascia at the umbilicus was closed with interrupted 0 Vicryl. Skin incisions were closed with meseret. The patient tolerated the procedure well. He was awakened, transferred to a bed, and taken to the postanesthetic care unit in stable, satisfactory condition. LCS:beatris Job ID: [id number] Doc ID: [id number] Daxa Walden M.D.
== END 2021-03-25 13:43 | disposition home or self-care (01) ==
LOC: ED 20:14 → MEDSUR 20:14
PROVIDERS: ADMIT Family Medicine Adult Medicine; ATTEND Family Medicine Adult Medicine